=== PATIENT | male | born 1960 | race Caucasian/White ===

== ENCOUNTER 2022-01-11 09:17 | Emergency (ER) | payer MEDICAID, MEDICARE ==
[2022-01-11 09:28] VITALS: BP 112/74; PULSE 82
[2022-01-11] MEDS: Lactated Ringers 1,000 ML IV SCH (10:07)
[2022-01-11 10:23] LABS: CORONAVIRUS COVID-19 NAA NEGATIVE (NEGATIVE)
[2022-01-11] MEDS: cefTRIAXone 2 GM in Sodium Chloride 0.9% 100 ML IV ONE (11:50)
== END 2022-01-11 13:35 | disposition home or self-care (01) ==
LOC: JD.ED 09:17
DX: J40 Bronchitis, not specified as acute or chronic (principal); J01.00 Acute maxillary sinusitis, unspecified; E11.9 Type 2 diabetes mellitus without complications; F17.210 Nicotine dependence, cigarettes, uncomplicated; K21.9 Gastro-esophageal reflux disease without esophagitis; E66.9 Obesity, unspecified; Z68.30 Body mass index [BMI] 30.0-30.9, adult; Z79.84 Long term (current) use of oral hypoglycemic drugs; Z79.899 Other long term (current) drug therapy; Z20.822 Contact with and (suspected) exposure to COVID-19
CPT/HCPCS: 0241U; 36415; 71045; 80053; 81001; 82947; 83036; 83735; 83880; 84443; 85025; 85379; 86140; 93005; 96365; 99284; J0696; J7120; 93010; 99285

== ENCOUNTER 2024-07-24 10:46 | Emergency (ER) | payer MEDICARE ==
[2024-07-24 12:29] LABS: BASOPHILS ABSOLUTE AUTO 0.1 K/mm3 (0.0-0.2); BASOPHILS PERCENT AUTO 0.5 % (0.0-1.0); EOSINOPHILS ABSOLUTE AUTO 0.2 K/mm3 (0.0-0.4); EOSINOPHILS PERCENT AUTO 1.5 % (0.0-6.0); HEMATOCRIT 47.1 % (42.0-52.0); HEMOGLOBIN 15.7 gm/dl (14.0-18.0); IMMATURE GRAN ABSOLUTE AUTO 0.05 K/mm3 (0.00-0.05); IMMATURE GRAN PERCENT AUTO 0.4 % (0.0-0.4); LYMPHOCYTES ABSOLUTE AUTO 2.9 K/mm3 (1.0-4.8); MEAN CORPUSCULAR HGB CONC 33.3 g/dl (32.0-36.0); MEAN CORPUSCULAR VOLUME 80.9 fl (83.0-99.0); MEAN PLATELET VOLUME 8.8 fl (9.4-12.4); MONOCYTES ABSOLUTE AUTO 0.7 K/mm3 (0.0-0.8); MONOCYTES PERCENT AUTO 6.6 % (0.0-8.0); NEUTROPHILS ABSOLUTE AUTO 7.3 K/mm3 (1.8-7.7); PLATELET COUNT,PLT 238 K/mm3 (150-400); RED BLOOD CELL COUNT 5.82 M/mm3 (4.52-5.90); WHITE BLOOD CELL COUNT,WBC 11.29 K/mm3 (3.9-11.3)
[2024-07-24 13:04] LABS: ALBUMIN 3.4 g/dl (3.4-5.0); ANION GAP 8.7 (5-15); BILIRUBIN TOTAL 0.5 mg/dL (0.2-1.0); CALCIUM 9.3 mg/dL (8.5-10.1); CREATININE 0.7 mg/dL (0.7-1.3); EST CRCL DRUG DOSING (CG) 95.18 mL/min; POTASSIUM,K 3.7 mEq/L (3.5-5.1); PROTEIN TOTAL,TP 6.7 g/dl (6.4-8.2)
[2024-07-24 14:07] VITALS: BP 142/91; PULSE 66
== END 2024-07-24 14:05 | disposition home or self-care (01) ==
LOC: JD.ED 10:46
DX: G62.9 Polyneuropathy, unspecified (principal); I10 Essential (primary) hypertension; E66.9 Obesity, unspecified; E11.9 Type 2 diabetes mellitus without complications; F17.210 Nicotine dependence, cigarettes, uncomplicated; Z79.899 Other long term (current) drug therapy
CPT/HCPCS: 36415; 80053; 85025; 93970; 93970-26; 99284

== ENCOUNTER 2024-12-11 17:57 | Emergency (ER) | payer MEDICARE ==
[2024-12-11 18:59] VITALS: BP 169/84; PULSE 74
== END 2024-12-11 20:37 | disposition home or self-care (01) ==
LOC: JD.ED 17:57
DX: T33.532A Superficial frostbite of left finger(s), initial encounter (principal); I10 Essential (primary) hypertension; E11.9 Type 2 diabetes mellitus without complications; E66.9 Obesity, unspecified; F17.210 Nicotine dependence, cigarettes, uncomplicated; Z79.899 Other long term (current) drug therapy; X31.XXXA Exposure to excessive natural cold, initial encounter
CPT/HCPCS: 99283